=== PATIENT | male | born 1960 | race Caucasian/White ===

== ENCOUNTER 2024-10-04 20:31 | Emergency (ER) | payer BC ==
[2024-10-04] MEDS ORDERED: Ondansetron ODT 4 MG TAB ONE (20:47)
[2024-10-04] MEDS ORDERED: Ibuprofen 600 MG TAB ONE (21:01)
== END 2024-10-04 22:16 | disposition home or self-care (01) ==
LOC: MADERS 20:31
DX: J10.1 Influenza due to other identified influenza virus with other respiratory manifestations (principal)
CPT/HCPCS: 87428; 99284; Q0162